=== PATIENT | female | born 1985 ===

== ENCOUNTER 2021-04-07 06:33 | Inpatient (IN) ==
--- NOTE | 2021-04-07 07:00 | History & Physical Report ---
Date of Service April 07, 2021 Assessment & Plan (1) History of delivery, currently in third trimester: (2) uterine contractions in third trimester, antepartum: Plan: 35-year-old -1-0-1 at 35 weeks and 6 days of gestation with history of labor and and delivery at 27 weeks ( P1) cerclage placement and history of prior ( P2), Cerclage in place with contractions and plan for repeat CS and BTL with current , no records, transfer from another practice in [place] No leakage of fluid per speculum exam, negative nitrazine, negative AmniSure, no ferning on slide, Uterine contractions with closed cervix, cerclage in place, heart rate reassuring, Plan to monitor, IV fluid hydration, signed out to my incoming partner Dr. Valenzuela for plan for admission. (3) Cervical cerclage suture present in third trimester: (4) No leakage of amniotic fluid into vagina: History of Present Illness Primary Care Provider: Carlos Peña DO Patient is a 35-year-old -1-0-1 at 35.6 weeks of gestation who is presenting from [place] directed by her physician to come here due to leakage of fluid and contractions. She woke up at 4:30 AM with a gush of fluid leakage and then started to have contractions. She was supposed to deliver at [facility]. We do not have any records for her. History is taken from her. Her has been complicated by history of labor and delivery at 27 weeks and then placement of cerclage and delivery via at 38 weeks with her second and now with cerclage and planning to have repeat C- section with tubal ligation with this . Allergies Allergy/AdvReac Type Severity Reaction Status Date / Time No Known Allergies Allergy Verified 09/26/20 10:57 Home Medications Medication Instructions Recorded Confirmed Type bupropion HCl 150 mg 24 hr tablet, 150 mg PO QAM 09/26/20 09/26/20 History extended release phentermine 37.5 mg tablet 37.5 mg PO DAILY 09/26/20 09/26/20 History trazodone 50 mg tablet 50 mg PO DAILY 09/26/20 09/26/20 History Patient History Surgical History Hx of appendectomy Hx of cholecystectomy Family History Aunt Colon cancer Ovarian cancer Grandmother (Maternal) Breast cancer Social History Smoking Status: Former smoker Second Hand Exposure: No; Do You Dip or Chew Tobacco: No; Tobacco Cessation Education Requested by Patient: No Hx Alcohol Use: No Hx Substance Use: No Preferred Language: Macedonian Feels Safe at Home: Yes Safety Concerns: Feels Safe At This Time caffeine: Yes (Coffee, 3-4 cups per day ) OB History 1# labor and delivery at 27 weeks in 2012, infant survived until age 5 and then due to cancer. 2#cerclage placement during , delivered at 38 weeks via due to hand presentation, 3#current with cerclage in place INTERNAL REVIEW AND AUDIT COMPLIANCE History History of STDs including chlamydia, gonorrhea, herpes Review of Systems as per Subjective / HPI Physical Exam Constitutional: WD/WN, vitals as above well developed, well nourished, + acute distress (With contractions only) and + morbidly obese Genitourinary: normal external appearance Speculum/Bimanual Exam: normal appearance of the vagina (No pooling, small mucus) Manual OB Exam: + cervical dilation (0), + cervical effacement 80% and + station -2 (Cerclage in place) OB Exam Monitor Tracing: + external uterine monitor used and + category I Results & Data ([place]) Vital Signs (Past 12 Hours) Vital Signs Pulse BP 04/07/21 06:44 116 H 144/82 H
[2021-04-07] MEDS ORDERED: LACTATED RINGER'S 1,000 ML IV ONE (07:11)
[2021-04-07] MEDS ORDERED: BUTORPHANOL TARTRATE 1 MG/ML VIAL IV ONE (07:49)
[2021-04-07] MEDS ORDERED: LACTATED RINGER'S 1,000 ML IV PRN (10:02)
[2021-04-07] MEDS ORDERED: OXYTOCIN 30 UNITS/500 ML BAG IV PRN (10:02)
[2021-04-07] MEDS ORDERED: LACTATED RINGER'S 1,000 ML IV SCH ×2 (10:15→13:06)
--- NOTE | 2021-04-07 10:22 | Labor Progress Brief Note ---
Date of Service April 07, 2021 Subjective Reason For Note: Routine Evaluation and Change In Status patient becoming more uncomfortable with regular contractions despite IV hydration Assessment & Plan (1) Cervical cerclage suture present in third trimester: (2) History of delivery, currently in third trimester: (3) uterine contractions in third trimester, antepartum: (4) Encounter for sterilization: Plan: Repeat section with BTL removal of cerclage Physical Exam Constitutional: WD/WN, vitals as above + morbidly obese Genitourinary: no vaginal lesions, no adnexal mass normal external appearance OB Exam Abdomen: + fundal height Manual OB Exam: + cervical dilation 1 cm, + cervical effacement 50% and + station high OB Exam Monitor Tracing: + external FHT monitor used, + external uterine monitor used, + category I and + normal FHT variability cervix is soft cerclage in place will proceed with repeat section due to ongoing labor Results [facility] Data ([facility]) Vital Signs (Past 12 Hours) Vital Signs Temp Pulse Resp BP Pulse Ox 04/07/21 09:24 94 H 99 04/07/21 09:19 96 H 100 04/07/21 09:14 96 H 100 04/07/21 09:09 106 H 100 04/07/21 09:04 84 98 04/07/21 08:59 96 H 99 04/07/21 08:54 98 H 100 04/07/21 08:49 94 H 99 04/07/21 08:44 87 100 04/07/21 08:39 93 H 100 04/07/21 08:34 94 H 100 04/07/21 08:31 88 94 04/07/21 08:29 93 H 100 04/07/21 08:24 94 H 99 04/07/21 08:19 97 H 99 04/07/21 08:14 100 H 98 04/07/21 08:09 94 H 98 04/07/21 08:04 100 H 95 04/07/21 07:59 94 H 100 04/07/21 07:55 89 133/69 04/07/21 07:54 97 H 100 04/07/21 06:54 36.7 C 116 H 18 144/82 H 04/07/21 06:44 116 H 144/82 H
[2021-04-07 10:37] LABS: Hematocrit (blood only) 38.2 % (37-47); Hemoglobin 12.6 g/dL (12.0-16.0); Mean Corpuscular Hemoglobin 29.4 pg (25-34); Mean Corpuscular Volume 89.3 fL (80-100); Mean Platelet Volume 9.3 fL (7.4-10.4); Platelet Count 234 K/uL (130-400); RDW Coefficient of Variation 15.8 % (11.5-14.5); RDW Standard Deviation 50.7 fL (36.4-46.3); Red Blood Count 4.28 M/uL (4.2-5.4); White Blood Count 14.11 K/uL (4.8-10.8)
[2021-04-07] MEDS ORDERED: ePHEDrine sulfate 50 MG/ML AMP IV PRN (10:54)
[2021-04-07] MEDS ORDERED: diphenhydrAMINE 50 MG/ML VIAL IV PRN (10:54)
[2021-04-07] MEDS ORDERED: NALOXONE HCL 0.08 MG in SYRINGE 1.8 ML IV PRN (10:54)
[2021-04-07] MEDS ORDERED: NALOXONE HCL 0.4 MG/1 ML VIAL/CARP IV PRN (10:54)
[2021-04-07] MEDS ORDERED: NALOXONE HCL 1 MG in SODIUM CHLORIDE 0.9% 1000ML 1,000 ML IV PRN (10:54)
[2021-04-07] MEDS ORDERED: KETOROLAC 30 MG/ML VIAL IV PRN (10:54)
[2021-04-07] MEDS ORDERED: LACTATED RINGER'S 500 ML IV PRN (10:54)
[2021-04-07] MEDS ORDERED: MoRPHine SULFATE PF 1 MG/ML 10 ML AMP/VIAL INT SPINAL ONE (10:54)
[2021-04-07] MEDS ORDERED: HYDROmorphone INJ 0.5 MG/0.5 ML SYR IV PRN (10:54)
[2021-04-07] MEDS ORDERED: NALBUPHINE HCL INJ 10 MG/ML AMP IV PRN (10:54)
[2021-04-07] MEDS ORDERED: ONDANSETRON INJ 2 MG/ML 2 ML VIAL IV PRN (10:54)
[2021-04-07] MEDS ORDERED: CITRIC ACID/SODIUM CITRATE 15 ML UDC ONE (10:55)
[2021-04-07] MEDS ORDERED: SODIUM CHLORIDE 0.9% 1000ML 1,000 ML IV SCH (11:00)
[2021-04-07] MEDS ORDERED: DC INTRASPINAL MORPHINE SCH (11:00)
[2021-04-07] MEDS ORDERED: NO NARCOTICS OR SEDATIVES SCH (11:00)
--- NOTE | 2021-04-07 11:03 | Anesthesiology Consultation ---
Date of Service April 07, 2021 Assessment & Plan (1) Encounter for pre-operative examination: Chart Review Chart Review: Acceptable Risk for Surgery and Patient NOT seen in Pre Admission Testing Consults Requested none History Surgery Operation Date: 04/07/21 10:00 Proposed Procedures p Section in LD(Bilateral) - Tulio Valenzuela MD Height/Weight Height: 5 ft 7 in Weight: 136.078 kg Allergies Allergy/AdvReac Type Severity Reaction Status Date / Time penicillin G Allergy Hives Verified 04/07/21 07:42 Medications Home Medications Medication Instructions Recorded Confirmed Last Taken bupropion HCl 150 mg 24 hr tablet, 150 mg PO QAM 09/26/20 09/26/20 Unknown extended release phentermine 37.5 mg tablet 37.5 mg PO DAILY 09/26/20 09/26/20 Unknown trazodone 50 mg tablet 50 mg PO DAILY 09/26/20 09/26/20 Unknown 1 tab PO DAILY 04/07/21 04/07/21 04/06/21 08:00 Prilosec 1 tab PO DAILY 04/07/21 04/07/21 04/06/21 08:00 iron 1 tab PO DAILY 04/07/21 04/07/21 04/06/21 08:00 NPO Date Last Intake of Fluids: 04/06/21 Time Last Intake of Fluids: 19:00 Date Last Intake of Solids: 04/06/21 Time Last Intake of Solids: 19:00 Past Medical History Medical History (Updated 04/07/21 @ 11:03 by Ranjit Casas MD) Morbid obesity Exercise / Class Metabolic Activity II 4-5 Yardwork/Stairs/Walk up hill Past Family History Family History Aunt Colon cancer Ovarian cancer Grandmother (Maternal) Breast cancer Past Surgical History Surgical History Hx of appendectomy Hx of cholecystectomy Past Anesthesia History No Hx of Anesthesia Complications and No Family Hx of Anesthesia Complications Social History Smoking Status: Former smoker Do You Dip or Chew Tobacco: No Hx Alcohol Use: No Hx Substance Use: No substance use type: does not use Physical Exam Vital Signs Last Vital Signs Temp 36.7 C 04/07/21 06:54 Pulse 107 H 04/07/21 11:00 Resp 18 04/07/21 06:54 BP 133/69 04/07/21 07:55 Pulse Ox 100 04/07/21 11:00 Testing Laboratory Results 04/07/21 10:20
[2021-04-07] MEDS ORDERED: fentaNYL citrate 100 MCG/2 ML VIAL ONE (11:10)
[2021-04-07] MEDS ORDERED: MoRPHine SULFATE PF 1 MG/ML 10 ML AMP/VIAL ONE (11:10)
[2021-04-07] MEDS ORDERED: OXYTOCIN 10 UNITS/ML 10ML VIAL ONE (11:11)
[2021-04-07] MEDS ORDERED: PHENYLEPHRINE 100MCG/ML 5ML SYR ONE (11:11)
[2021-04-07] MEDS ORDERED: ONDANSETRON INJ 2 MG/ML 2 ML VIAL ONE (11:59)
--- NOTE | 2021-04-07 12:39 | Post Operative Brief Note ---
Immediate Post Op Note v1 Date of Surgery April 07, 2021 Pre & Post Diagnosis Operation Date: 04/07/21 10:00 Pre-Op Diagnosis: Repeat section in labor. Voluntary sterilization. Post-Op Diagnosis: Same as above. I identified the patient and participated in the time-out.: Yes Procedure Operation Date: 04/07/21 10:00 Actual Procedures p Section in LD delivery of live male child at 1155 in OR #3(Bilateral) - Tulio Valenzuela MD Surgeon Tulio Valenzuela MD Oil Expert Dr Fox Estimated Blood Loss 500 Findings Consistent with Post-Op Diagnosis Live male Apgars 8/9 weight pending Fluids LR 2600 ml Specimens cord blood placenta Drains Carrillo Catheter Anesthesia Type Spinal Complications none Disposition Accompanied Patient To Recovery: Yes Disposition: L&D Overlapping Procedure I was present for: the critical portions of procedure. I was immediately available: during the entire case. Back up surgeon: used during listed procedure.
[2021-04-07] MEDS ORDERED: BENZOCAINE 20% AER SPR 82.5 GM CAN EXT PRN (13:06)
[2021-04-07] MEDS ORDERED: HYDROCORTISONE ACETATE 25 MG SUPP PR PRN (13:06)
[2021-04-07] MEDS ORDERED: MAGNESIUM HYDROXIDE SUSP 30 ML UDC PO PRN (13:06)
[2021-04-07] MEDS ORDERED: DIPHTHERIA/TETANUS/PERTUSSIS 0.5 ML SYR/VIAL IM ONE (13:06)
[2021-04-07] MEDS ORDERED: SENNA 8.6 MG TAB PO PRN (13:06)
[2021-04-07] MEDS: OXYTOCIN 20 UNITS in LACTATED RINGER'S 1,000 ML IV SCH ×2 (13:52→22:22)
--- NOTE | 2021-04-07 14:34 | Anesthesiology Progress Note ---
Date of Service April 07, 2021 Anesthesia Post Procedure Vital Signs Vital Signs: Temp Pulse Resp BP Pulse Ox 04/07/21 14:23 116 H 91 04/07/21 14:20 101 H 98 04/07/21 14:16 109 H 92 04/07/21 14:15 36.6 C 70 20 122/76 97 04/07/21 14:10 108 H 96 04/07/21 14:08 109 H 122/76 04/07/21 14:05 110 H 97 04/07/21 14:00 119 H 100 04/07/21 13:57 108 H 88 L 04/07/21 13:55 107 H 99 04/07/21 13:50 111 H 99 04/07/21 13:46 105 H 89 L 04/07/21 13:45 107 H 20 120/63 99 04/07/21 13:40 103 H 118/63 100 04/07/21 13:39 103 H 87 L 04/07/21 13:35 100 H 100 04/07/21 13:34 103 H 92 04/07/21 13:30 103 H 119/64 99 04/07/21 13:25 106 H 99 04/07/21 13:20 108 H 18 118/63 100 04/07/21 13:15 101 H 100 04/07/21 13:12 104 H 92 04/07/21 13:10 97 H 20 127/60 94 04/07/21 13:05 103 H 98 04/07/21 13:00 110 H 116/55 L 100 04/07/21 12:58 107 H 122/56 L 04/07/21 12:55 114 H 100 04/07/21 12:50 109 H 100 04/07/21 12:45 36.6 C 110 H 20 150/57 H 100 04/07/21 11:13 119 H 93 04/07/21 11:10 104 H 100 04/07/21 11:05 103 H 100 04/07/21 11:00 107 H 100 04/07/21 09:24 94 H 99 04/07/21 09:19 96 H 100 04/07/21 09:14 96 H 100 04/07/21 09:09 106 H 100 04/07/21 09:04 84 98 04/07/21 08:59 96 H 99 04/07/21 08:54 98 H 100 02/18/22 08:49 94 H 99 04/07/21 08:44 87 100 04/07/21 08:39 93 H 100 04/07/21 08:34 94 H 100 04/07/21 08:31 88 94 04/07/21 08:29 93 H 100 04/07/21 08:24 94 H 99 04/07/21 08:19 97 H 99 04/07/21 08:14 100 H 98 04/07/21 08:09 94 H 98 04/07/21 08:04 100 H 95 04/07/21 07:59 94 H 100 04/07/21 07:55 89 133/69 04/07/21 07:54 97 H 100 04/07/21 06:54 36.7 C 116 H 18 144/82 H 04/07/21 06:44 116 H 144/82 H Transfer of Care Handoff Completed per policy Notes Mental Status: alert / awake / arousable Patient Amnestic to Procedure: Yes Nausea / Vomiting: adequately controlled Pain: adequately controlled Airway Patency, RR, SpO2: stable & adequate BP & HR: stable & adequate and see Notes below Hydration State: stable & adequate Anesthetic Complications: no major complications apparent and Pt Satisfied with anesthetic care Notes: Patient remains tachycardic which she was at baseline. All of her other vital signs are stable.
[2021-04-07] MEDS: SIMETHICONE 80 MG CHEW PO SCH ×2 (17:38→20:45)
[2021-04-07] MEDS ORDERED: Flu Vaccine (Fluarix) 0.5mL SYR (Standard Dose) IM ONE (18:00)
[2021-04-07] MEDS: DOCUSATE SODIUM 100 MG CAP PO SCH (20:45)
[2021-04-07] MEDS: PANTOprazole 40 MG TAB PO SCH (20:45)
[2021-04-08] MEDS: IBUPROFEN 600 MG TAB PO PRN ×5 (00:04→22:07)
[2021-04-08] MEDS ORDERED: PROMETHAZINE HCL 25 MG in SODIUM CHLORIDE 0.9% 50 ML IV PRN (04:55)
[2021-04-08] MEDS ORDERED: ONDANSETRON INJ 2 MG/ML 2 ML VIAL IV PRN (04:55)
[2021-04-08] MEDS ORDERED: diphenhydrAMINE Capsule 25 MG CAP PO PRN (04:55)
[2021-04-08] MEDS ORDERED: KETOROLAC 30 MG/ML VIAL IV PRN (04:55)
[2021-04-08] MEDS ORDERED: MEPERIDINE HCL 50 MG/ML CARP IV PRN (04:55)
[2021-04-08] MEDS ORDERED: diphenhydrAMINE 50 MG/ML VIAL IV PRN (04:55)
--- NOTE | 2021-04-08 05:56 | Operative Report (OR) ---
DATE OF SURGERY: 04/07/2021. PREOPERATIVE DIAGNOSIS: Repeat section, scheduled for gestation in labor, requestin g voluntary sterilization. POSTOPERATIVE DIAGNOSIS: Repeat section, scheduled for gestation in labor, requesti ng voluntary sterilization. PROCEDURE: Repeat section, low segment transverse and bilateral tubal ligation. SURGEON: Tulio Valenzuela MD. DAYCARE DIRECTOR: Mike Fox MD ANESTHESIA: Spinal. CLINICAL HISTORY: The patient is a 35-year-old female, para 1-1-0-2 at 35 weeks and 6 days, seen at [facility] after complaining of possible rupture of membranes and onset of labor. The patient was evaluated by Dr. Calvert. AmniSure was negative and there was no ferning. The patient , however, continued to have contractions despite adequate IV hydration. The patient had a cerclage placed at [place] for incompetent cervix. She was seen by [facility] and came to [facility] without calling her physician first. She has not been our patient and was not seen by us previously. The patient continued to have contractions. She was rechecked, her cervix was 1 cm and thinned out and the patient was scheduled for repeat and voluntary sterilization procedure . The cerclage was removed in the OR prior to the start of the procedure. DESCRIPTION OF PROCEDURE: Under satisfactory spinal anesthesia, the patient was prepped and draped i n the usual sterile fashion. Timeout was called. Antibiotics were given preop. A low Pfannenstiel incision through a prior scar was then made, carrying this incision down into the abdominal cavity in successive layers without difficulty. Upon entering into the peritoneal cavity, the Cody retracto r was placed for exposure. A bladder flap was made with sharp dissection using Metzenbaum scissors. A low segment transverse incision over the lower uterine segment was made. The incision was widened in the AP diameter. Amniotic sac was nicked, found to be clear. The infant was then delivered from the vertex presentation with the aid of fundal pressure. The cord was doubly clamped and cut. Live male. Apgars were 6 pounds 9 ounces after 1 minute cord delay. Cord blood was obtained. Placenta w as then delivered spontaneously and intact, submitted to pathology as a separate specimen. The uteru s was then exteriorized. Ring forceps were then placed on both angles in the inferior margin. The u terus was then cleaned of all clots and debris. Uterus closed in a double layer closure with 0 Vicry l suture in a continuous interlocking fashion followed by second imbricating suture. No active bleed ing was noted. Tubes, ovaries bilaterally were found to be within normal limits. The initial sponge , needle, and instrument counts were found to be correct. Both tubes were identified and two Filshie clips were applied to each tube serially in the normal fas hion. Uterus was then placed back into the normal anatomical position and then irrigated to clear. The Cody retractor was then removed. The fascia was then reapproximated from both ends using 0 Jeremiah ryl suture in a continuous fashion. Subcuticular space was irrigated, bleeders cauterized and the fa t layer was then closed with a 2-0 plain suture, followed by jacquelin for skin. Telfa and sponge dres sing were then applied along with a PATTI dressing. The final sponge, needle and instrument counts we re found to be correct. The patient had clear urine. Estimated blood loss was 500 mL and the patien t was then placed supine on a stretcher and taken to recovery room in stable condition. Please note that Dr. Fox was present for the surgical case, used for exposure, abdominal retraction, fundal pre ssure and closing his side of the abdomen and assistance at surgery. Job ID: [id number]
[2021-04-08 06:43] LABS: Basophils # (auto) 0.01 K/uL (0-0.2); Basophils % (auto) 0.1 %; Eosinophils # (auto) 0.05 K/uL (0-0.5); Eosinophils % (auto) 0.5 %; Hematocrit (blood only) 33.4 % (37-47); Hemoglobin 10.9 g/dL (12.0-16.0); Immature Granulocytes # (auto) 0.03 K/uL (0.00-0.02); Immature Granulocytes % (auto) 0.3 %; Lymphocytes # (auto) 1.37 K/uL (1.2-3.4); Lymphocytes % (auto) 13.5 %; Mean Corpuscular Hemoglobin 29.2 pg (25-34); Mean Corpuscular Hgb Conc 32.6 g/dL (32-36); Mean Corpuscular Volume 89.5 fL (80-100); Mean Platelet Volume 9.3 fL (7.4-10.4); Monocytes # (auto) 0.95 K/uL (0.11-0.59); Monocytes % (auto) 9.4 %; Neutrophils # (auto) 7.75 K/uL (1.4-6.5); Neutrophils % (auto) 76.2 %; Platelet Count 211 K/uL (130-400); RDW Coefficient of Variation 15.9 % (11.5-14.5); RDW Standard Deviation 51.6 fL (36.4-46.3); Red Blood Count 3.73 M/uL (4.2-5.4); White Blood Count 10.16 K/uL (4.8-10.8)
[2021-04-08] MEDS: DOCUSATE SODIUM 100 MG CAP PO SCH ×2 (07:41→20:24)
[2021-04-08] MEDS: PRENATAL VITAMIN 1 TAB PO SCH (07:42)
[2021-04-08] MEDS: SIMETHICONE 80 MG CHEW PO SCH ×4 (07:42→20:25)
[2021-04-08] MEDS: PANTOprazole 40 MG TAB PO SCH ×2 (07:42→20:25)
[2021-04-08] MEDS: FERROUS SULFATE 325 MG TAB PO SCH (07:42)
--- NOTE | 2021-04-08 08:04 | Obstetrical Progress Note ---
Date of Service April 08, 2021 Assessment & Plan Admission and Anticipated Discharge Date Admission Date: April 07, 2021 Subjective Patient is seen and examined. She feels well, no complaints. Pain is under control with oral meds. Ambulating without dizziness Voiding without difficulty Tolerating regular diet with out N&V Flatus + BM neg Bleeding is minimal No fever/ chills/ CP/ SOB/ N&V/ Leg pain Breast feeding without problems Vital Signs Temp Pulse Resp BP Pulse Ox 04/08/21 04:15 36.9 C 107 H 16 123/80 98 04/08/21 03:30 18 97 04/08/21 02:30 16 96 04/08/21 01:40 16 97 04/07/21 23:55 37.4 C 112 H 20 115/78 100 04/07/21 23:22 16 99 04/07/21 22:20 16 100 04/07/21 21:30 18 100 04/07/21 21:05 37.3 C 105 H 18 138/85 100 Lab Results 04/07/21 04/07/21 04/07/21 Range/Units 10:20 10:25 Unknown WBC 14.11 H (4.8-10.8) K/uL RBC 4.28 (4.2-5.4) M/uL Hgb 12.6 (12.0-16.0) g/dL Hct 38.2 (37-47) % MCV 89.3 (80-100) fL MCH 29.4 (25-34) pg MCHC 33.0 (32-36) g/dL RDW Std Deviation 50.7 H (36.4-46.3) fL RDW Coeff of Ronald 15.8 H (11.5-14.5) % Plt Count 234 (130-400) K/uL MPV 9.3 (7.4-10.4) fL Immature Gran % (Auto) % Neut % (Auto) % Lymph % (Auto) % [place] % (Auto) % Eos % (Auto) % Baso % (Auto) % Neut # (Auto) (1.4-6.5) K/uL Lymph # (Auto) (1.2-3.4) K/uL [place] # (Auto) (0.11-0.59) K/uL Eos # (Auto) (0-0.5) K/uL Baso # (Auto) (0-0.2) K/uL Immature Gran # (Auto) (0.00-0.02) K/uL Amniotic Protein NEG SARS-CoV-2, RNA, NAAT NEGATIVE (NEGATIVE) 04/08/21 Range/Units 06:19 WBC 10.16 (4.8-10.8) K/uL RBC 3.73 L (4.2-5.4) M/uL Hgb 10.9 L (12.0-16.0) g/dL Hct 33.4 L (37-47) % MCV 89.5 (80-100) fL MCH 29.2 (25-34) pg MCHC 32.6 (32-36) g/dL RDW Std Deviation 51.6 H (36.4-46.3) fL RDW Coeff of Ronald 15.9 H (11.5-14.5) % Plt Count 211 (130-400) K/uL MPV 9.3 (7.4-10.4) fL Immature Gran % (Auto) 0.3 % Neut % (Auto) 76.2 % Lymph % (Auto) 13.5 % [place] % (Auto) 9.4 % Eos % (Auto) 0.5 % Baso % (Auto) 0.1 % Neut # (Auto) 7.75 H (1.4-6.5) K/uL Lymph # (Auto) 1.37 (1.2-3.4) K/uL [place] # (Auto) 0.95 H (0.11-0.59) K/uL Eos # (Auto) 0.05 (0-0.5) K/uL Baso # (Auto) 0.01 (0-0.2) K/uL Immature Gran # (Auto) 0.03 H (0.00-0.02) K/uL Amniotic Protein SARS-CoV-2, RNA, NAAT (NEGATIVE) PE: General: Alert, orientedx3, NAD CVS: S1S2 RRR Lungs; CTAB Abd: soft, NT, ND, BS+, fundus firm, below Umbilicus Incision/ Dressing: Clean, dry, intact Perineum intact, Lochia rubra minimal Ext; NT, no edema AP: 35 yo s/p C Section, pod# 1 VSS Afebrile doing well Continue routine postop care Encourage ambulation, PO intake All questions were answered D/C home tomorrow Results & Data ([facility]) Vital Signs (Past 12 Hours) Vital Signs Temp Pulse Resp BP Pulse Ox 04/08/21 04:15 36.9 C 107 H 16 123/80 98 04/08/21 03:30 18 97 04/08/21 02:30 16 96 04/08/21 01:40 16 97 04/07/21 23:55 37.4 C 112 H 20 115/78 100 04/07/21 23:22 16 99 04/07/21 22:20 16 100 04/07/21 21:30 18 100 04/07/21 21:05 37.3 C 105 H 18 138/85 100
[2021-04-08] MEDS ORDERED: NON-FORMULARY MEDICATION (Iron 1 TAB) PO SCH (09:00)
[2021-04-08] MEDS ORDERED: NON-FORMULARY MEDICATION (Prenatal 1 TAB) PO SCH (09:00)
[2021-04-08] MEDS ORDERED: buPROPion XL 150 MG TABCR PO SCH (09:00)
[2021-04-08] MEDS ORDERED: traZODone HCL 50 MG TAB PO SCH (09:00)
[2021-04-08] MEDS ORDERED: Nursing to Pharmacy Communication SCH (16:00)
[2021-04-08] MEDS ORDERED: bisacodyL 5 MG TABEC PO SCH (20:00)
[2021-04-08] MEDS: oxyCODONE/ACETAMINOPHEN 5mg/325mg TAB PO PRN (22:07)
[2021-04-09 06:26] LABS: Hematocrit (blood only) 32.9 % (37-47); Hemoglobin 10.4 g/dL (12.0-16.0)
[2021-04-09] MEDS: IBUPROFEN 600 MG TAB PO PRN ×3 (07:45→17:14)
[2021-04-09] MEDS: PRENATAL VITAMIN 1 TAB PO SCH (07:45)
[2021-04-09] MEDS: SIMETHICONE 80 MG CHEW PO SCH ×4 (07:45→20:06)
[2021-04-09] MEDS: DOCUSATE SODIUM 100 MG CAP PO SCH ×2 (07:45→20:06)
[2021-04-09] MEDS: FERROUS SULFATE 325 MG TAB PO SCH (07:45)
--- NOTE | 2021-04-09 10:13 | Obstetrical Progress Note ---
Date of Service April 09, 2021 Assessment & Plan Admission and Anticipated Discharge Date Admission Date: April 07, 2021 Subjective Patient is seen and examined. She feels well, no complaints. Desires d/c today Pain is under control with oral meds. Ambulating without dizziness Voiding without difficulty Tolerating regular diet with out N&V Flatus + BM + Bleeding is minimal No fever/ chills/ CP/ SOB/ N&V/ Leg pain Breast and bottle feeding without problems Vital Signs Temp Pulse Resp BP Pulse Ox 04/09/21 07:30 37.2 C 118 H 18 136/84 98 04/09/21 00:25 37.0 C 93 H 18 125/81 99 04/08/21 20:25 36.8 C 93 H 18 127/83 100 04/08/21 10:50 36.8 C 99 H 18 139/72 Pulse: 90 PE: General: Alert, orientedx3, NAD CVS: S1S2 RRR Lungs; CTAB Abd: soft, NT, ND, BS+, fundus firm, below Umbilicus Incision/dressing: Clean, dry, intact Perineum intact, Lochia rubra minimal Ext; NT, no edema AP: 35 yo s/p RC Section, pod# 2 VSS Afebrile doing well Continue routine postop care Encourage ambulation, PO intake All questions were answered Discussed when to call D/C home , F/U IN OFFICE Results & Data ([facility]) Vital Signs (Past 12 Hours) Vital Signs Temp Pulse Resp BP Pulse Ox 04/09/21 07:30 37.2 C 118 H 18 136/84 98 04/09/21 00:25 37.0 C 93 H 18 125/81 99
[2021-04-09] MEDS: oxyCODONE/ACETAMINOPHEN 5mg/325mg TAB PO PRN (12:33)
[2021-04-09] MEDS ORDERED: bisacodyL 10 MG SUPP PR PRN (12:49)
[2021-04-09] MEDS: PANTOprazole 40 MG TAB PO SCH (20:06)
[2021-04-10] MEDS: IBUPROFEN 600 MG TAB PO PRN (00:52)
[2021-04-10] MEDS: DOCUSATE SODIUM 100 MG CAP PO SCH (07:34)
[2021-04-10] MEDS: FERROUS SULFATE 325 MG TAB PO SCH (07:34)
[2021-04-10] MEDS: SIMETHICONE 80 MG CHEW PO SCH (07:35)
[2021-04-10] MEDS: PRENATAL VITAMIN 1 TAB PO SCH (07:35)
--- NOTE | 2021-04-18 16:51 | Discharge Summary (DS) ---
DATE OF DISCHARGE: 04/10/2021. HOSPITAL COURSE AND REASON FOR ADMISSION: The patient is a 35-year-old female, para 1-1-0-2 at 35 we eks and 6 days, seen at [facility] after possible rupture of membranes and onset of labor. The patient was evaluated by Dr. Calvert in the morning of admission and she was found to be r uptured, continued to contract despite IV hydration. The patient had a cerclage that was placed at [facility] for incompetent cervix and this was placed at [place]. The patient was a patient at [facility] and was presenting here for rule out rupture of membranes. She was dilated and having contractio ns despite IV hydration and repeat section was performed along with voluntary sterilization. Surgery was done under spinal anesthesia with a live male born. There were no complications of the [facility]ott rgery. The patient subsequently was discharged home on 04/10/2021 in stable condition. Home going i nstructions were given. CONDITION ON DISCHARGE: Stable. DIET: Regular diet on discharge. MEDICATIONS: Include Percocet and Motrin. Follow up will be in 1 week for an incision check. Job ID: [id number]
== END 2021-04-10 15:00 | disposition home or self-care (01) | DRG 785 ==
LOC: OPB 06:33 → 4S1 06:35 → 4S2 15:59